=== PATIENT | male | born 1950 | race Caucasian/White ===

== ENCOUNTER 2017-02-17 12:43 | Emergency (ER) | payer OTHER ==
[~2017-02-17] VITALS: Ht 182.9 cm; Wt 110.0 kg
[2017-02-17 13:28] LABS: EOSINOPHIL (%) 4.9 % (0-5); EOSINOPHIL COUNT 0.4 K/uL (0-0.3); HEMATOCRIT 45.2 % (38.0-50.0); IMMATURE GRANULOCYTE (%) 0.3 % (0.0-0.7); INSTRUMENT ABS NEUTROPHIL CT 5.1 K/uL; LYMPHOCYTE COUNT 1.6 K/uL (1.0-2.8); MCH 30.6 PG (29.0-34.0); MCHC 33.6 G/DL (30.0-36.0); MCV 91.1 FL (86-99); MEAN PLAT.VOLUME 10.6 uM^3 (9.0-12.4); MONOCYTE (%) 7.6 % (3-12); MONOCYTE COUNT 0.6 K/uL (0-0.8); NEUTROPHIL (%) 66.5 % (45-76); NEUTROPHIL COUNT 5.1 K/uL (1.8-6.4); PLATELET COUNT 194 K/uL (156-360); RBC DIS.WIDTH-CV 13.6 % (11.8-14.6); RED BLOOD COUNT 4.96 M/uL (4.00-5.50); WHITE BLOOD COUNT 7.7 K/uL (4.1-10.2)
[2017-02-17 13:35] LABS: PROTHROMBIN TIME 23.3 SEC (10.2-12.9)
[2017-02-17 13:37] LABS: CHLORIDE 104 mEq/L (99-109); POTASSIUM 4.4 mEq/L (3.7-5.4); SODIUM 140 mEq/L (136-147)
[2017-02-17 13:38] LABS: PTT 39.8 SEC (25-37)
[2017-02-17 13:39] LABS: GLUCOSE 168 mg/dL (70-99)
[2017-02-17 13:40] LABS: ANION GAP 12 MEQ/L (2-14)
[2017-02-17 13:41] LABS: TOTAL BILIRUBIN 0.5 mg/dL (0.0-1.0)
[2017-02-17 13:42] LABS: ALKALINE PHOSPHATASE 69 IU/L (3-129)
[2017-02-17 13:43] LABS: GFR ESTIMATE (CALCULATED) > 59 mL/min/
[2017-02-17 13:44] LABS: UREA NITROGEN (BUN) 18 mg/dL (9-23)
[2017-02-17 13:46] LABS: LIPASE 62 U/L (1.0-51.0)
[2017-02-17 13:48] LABS: TROP-I INTERPRETATION NEGATIVE; TROPONIN-I 0.01 ng/mL (0.0-0.30)
[2017-02-17 16:47] LABS: TROP-I INTERPRETATION NEGATIVE; TROPONIN-I 0.01 ng/mL (0.0-0.30)
[2017-02-17] MEDS ORDERED: OMEPRAZOLE40 M1 PO (16:52)
[2017-02-17 17:01] VITALS: BP 132/77
== END 2017-02-17 17:07 | disposition home or self-care (01) ==
LOC: EME 12:43
PROVIDERS: Physician Assistant
DX: R07.9 Chest pain, unspecified (principal); K21.9 Gastro-esophageal reflux disease without esophagitis; I48.91 Unspecified atrial fibrillation; Z98.84 Bariatric surgery status; H54.8 Legal blindness, as defined in USA; Z87.891 Personal history of nicotine dependence
CPT/HCPCS: 71020; 80053; 83690; 84484; 85025; 85610; 85730; 93005; 99281; 99285